=== PATIENT | male | born 1945 | race Caucasian/White ===

== ENCOUNTER → 2017-05-30 | Outpatient (REF) | payer MEDICARE ==
[~2017-05-30] MED LIST: /AUGM875TA; /TAMS4CA; AMLO10TA PO; ASPI81TA24 PO; ASPI81TA83 OR; ATOR1TAB21 PO; CHLO25TA PO; DICLOFENAC PO; ENAL20TA PO; FLAG500T; GEMFPOW3 PO; HYDR25TA6 PO; LISI10TA4 OR; LISI10TA4 PO; LISI40TAB PO; METF500T13 PO; PERC5TAB8
[2017-05-30 19:11] LABS: ANION GAP 9 MEQ/L (8-16); BLOOD UREA NITROGEN 26 MG/DL (7-18); CALCIUM LEVEL 9.4 MG/DL (8.8-10.2); CARBON DIOXIDE LEVEL 28 MEQ/L (21-32); CHLORIDE LEVEL 104 MEQ/L (98-107); CREATININE FOR GFR 1.18 MG/DL (0.70-1.30); GLOMERULAR FILTRATION RATE > 60.0 (>42); GLUCOSE, FASTING 91 MG/DL (83-110); SODIUM LEVEL 141 MEQ/L (136-145)
== END ==
LOC: M SFHCPLAZ 16:13
DX: R73.09 Other abnormal glucose (principal); I10 Essential (primary) hypertension
CPT/HCPCS: 80048; 83036; G0463

== ENCOUNTER → 2017-09-18 | Outpatient (REF) | payer MEDICARE | LOC: M LAB REF 13:08 | PROVIDERS: ATTEND Neurological Surgery | DX: Z01.818 Encounter for other preprocedural examination (principal) ==

== ENCOUNTER → 2017-09-18 | Outpatient (REF) | payer MEDICARE ==
[~2017-09-18] MED LIST changes: +AZIT-12 PO; +HYDR25TAB PO; +TYLE325T5 PO
[2017-09-18 12:12] LABS: ANION GAP 7 MEQ/L (8-16); BLOOD UREA NITROGEN 24 MG/DL (7-18); CALCIUM LEVEL 8.7 MG/DL (8.8-10.2); CARBON DIOXIDE LEVEL 29 MEQ/L (21-32); CHLORIDE LEVEL 106 MEQ/L (98-107); CREATININE FOR GFR 1.04 MG/DL (0.70-1.30); GLOMERULAR FILTRATION RATE > 60.0 (>42); GLUCOSE, FASTING 83 MG/DL (83-110); POTASSIUM SERUM 3.9 MEQ/L (3.5-5.1); SODIUM LEVEL 142 MEQ/L (136-145)
== END ==
LOC: M LABDRAW1 09:18 → M SFHCPLAZ 09:18
DX: R73.09 Other abnormal glucose (principal); I10 Essential (primary) hypertension
CPT/HCPCS: 80048; 83036; 87081; 93005; G0463

== ENCOUNTER → 2017-09-24 | Outpatient (REF) | payer MEDICARE ==
[2017-09-24 12:16] LABS: BASO % 0.7 % (0.0-1.0); EOS # 0.3 10^3/uL (0.0-0.50); EOS % 5.8 % (0.0-3.0); IMMATURE GRANULOCYTE % 0.2 % (0-0); LYMPH # 1.9 10^3/uL (1.5-4.5); LYMPH % 33.3 % (24.0-44.0); MEAN CORPUSCULAR HGB CONC 33.4 g/dl (32.0-36.5); MEAN CORPUSCULAR VOLUME 89.8 fl (80.0-96.0); MONO # 0.5 10^3/uL (0.0-0.8); MONO % 8.3 % (0.0-5.0); NEUTROPHILS # 2.9 10^3/uL (1.8-7.7); NEUTROPHILS % 51.7 % (36.0-66.0); PLATELET COUNT, AUTOMATED 164 10^3/uL (150-450); RED CELL DISTRIBUTION WIDTH 13.2 % (11.5-14.5); WHITE BLOOD COUNT 5.7 10^3/uL (4.0-10.0)
[2017-09-24 12:27] LABS: INR 0.96
[2017-09-24 12:34] LABS: ALBUMIN 4.1 GM/DL (3.2-5.2); ALBUMIN/GLOBULIN RATIO 1.14 (1.00-1.93); ALKALINE PHOSPHATASE 69 U/L (45-117); ALT/SGPT 33 U/L (12-78); ANION GAP 6 MEQ/L (8-16); AST/SGOT 21 U/L (7-37); BILIRUBIN,TOTAL 0.5 MG/DL (0.2-1.0); BLOOD UREA NITROGEN 16 MG/DL (7-18); CALCIUM LEVEL 9.6 MG/DL (8.8-10.2); CARBON DIOXIDE LEVEL 33 MEQ/L (21-32); CHLORIDE LEVEL 102 MEQ/L (98-107); GLOMERULAR FILTRATION RATE > 60.0 (>42); GLUCOSE, FASTING 89 MG/DL (83-110); POTASSIUM SERUM 4.4 MEQ/L (3.5-5.1); SODIUM LEVEL 141 MEQ/L (136-145); TOTAL PROTEIN 7.7 GM/DL (6.4-8.2)
[2017-09-24 13:13] LABS: COLLAGEN ADP 153 SECONDS (56-103)
== END ==
LOC: M LABDRWAD 12:02
PROVIDERS: ATTEND Neurological Surgery
DX: Z01.812 Encounter for preprocedural laboratory examination (principal); Z79.899 Other long term (current) drug therapy

== ENCOUNTER 2017-09-29 08:05 | Emergency (ER) | payer MEDICARE, MEDICAID ==
[~2017-09-29] VITALS: Ht 167.6 cm; Wt 88.2 kg
[~2017-09-29 08:05] MED LIST changes: -AZIT-12 PO; -HYDR25TAB PO; -TYLE325T5 PO
[2017-09-29] MEDS ORDERED: HYDR25TAB PO (08:37)
[2017-09-29 09:54] LABS: BASO % 0.3 % (0.0-1.0); EOS % 0.4 % (0.0-3.0); IMMATURE GRANULOCYTE % 0.4 % (0-0); LYMPH # 0.9 10^3/uL (1.5-4.5); MEAN CORPUSCULAR HGB CONC 33.7 g/dl (32.0-36.5); MEAN CORPUSCULAR VOLUME 88.9 fl (80.0-96.0); MONO # 0.7 10^3/uL (0.0-0.8); MONO % 6.7 % (0.0-5.0); NEUTROPHILS # 8.7 10^3/uL (1.8-7.7); NEUTROPHILS % 83.2 % (36.0-66.0); PLATELET COUNT, AUTOMATED 145 10^3/uL (150-450); RED CELL DISTRIBUTION WIDTH 13.5 % (11.5-14.5); WHITE BLOOD COUNT 10.4 10^3/uL (4.0-10.0)
--- NOTE | 2017-09-29 09:58 | REP ---
Chest two views HISTORY: Fever Comparison: 12/25/2015 A calcified granuloma is present in the right lower lobe. The left lung is clear. The heart is normal in size. The pulmonary vasculature is normal in appearance. Degenerative change is present in the thoracic spine. IMPRESSION: No acute disease. Signed by Jeb Toussaint MD 09/29/2017 09:51 A
[2017-09-29 10:14] LABS: CALCIUM LEVEL 9.4 MG/DL (8.8-10.2); CREATININE FOR GFR 1.55 MG/DL (0.70-1.30); POTASSIUM SERUM 3.4 MEQ/L (3.5-5.1)
[2017-09-29] MEDS ORDERED: POTASSIUM CHLORIDE 10 MEQ SR TABLET PO ONE (10:30)
[2017-09-29] MEDS ORDERED: AZITHROMYCIN 250 MG TAB PO ONE (11:45)
[2017-09-29] MEDS ORDERED: AZIT-12 PO (11:46)
[2017-09-29] MEDS ORDERED: TYLE325T5 PO (11:56)
[2017-09-29 12:00] VITALS: BP 101/64
== END 2017-09-29 12:07 | disposition home or self-care (01) ==
LOC: M ED 08:05
DX: J18.9 Pneumonia, unspecified organism (principal); Z87.891 Personal history of nicotine dependence; I10 Essential (primary) hypertension; E78.00 Pure hypercholesterolemia, unspecified; E11.9 Type 2 diabetes mellitus without complications; M54.9 Dorsalgia, unspecified; Z79.82 Long term (current) use of aspirin; Z79.899 Other long term (current) drug therapy; Z79.84 Long term (current) use of oral hypoglycemic drugs; Z88.8 Allergy status to other drugs, medicaments and biological substances

== ENCOUNTER → 2017-11-20 | Outpatient (REF) | payer MEDICARE, MEDICAID | LOC: M LABNEURO 13:30 | DX: Z01.818 Encounter for other preprocedural examination (principal) | CPT/HCPCS: 87081 ==

== ENCOUNTER → 2017-11-21 | Outpatient (CLI) | payer MEDICARE, MEDICAID ==
[2017-11-21 13:55] LABS: BASO % 0.6 % (0.0-1.0); EOS # 0.4 10^3/uL (0.0-0.50); EOS % 5.9 % (0.0-3.0); HEMATOCRIT 45.7 % (42.0-52.0); HEMOGLOBIN 15.6 g/dl (14.0-18.0); IMMATURE GRANULOCYTE % 0.3 % (0-0); LYMPH # 2.2 10^3/uL (1.5-4.5); LYMPH % 31.1 % (24.0-44.0); MEAN CORPUSCULAR HEMOGLOBIN 29.9 pg (27.0-33.0); MEAN CORPUSCULAR HGB CONC 34.1 g/dl (32.0-36.5); MEAN CORPUSCULAR VOLUME 87.7 fl (80.0-96.0); MONO # 0.4 10^3/uL (0.0-0.8); MONO % 5.9 % (0.0-5.0); NEUTROPHILS # 3.9 10^3/uL (1.8-7.7); NEUTROPHILS % 56.2 % (36.0-66.0); PLATELET COUNT, AUTOMATED 152 10^3/uL (150-450); RED BLOOD COUNT 5.21 10^6/uL (4.30-6.10); RED CELL DISTRIBUTION WIDTH 13.9 % (11.5-14.5)
[2017-11-21 14:05] LABS: INR 0.98; PROTHROMBIN TIME 13.1 SECONDS (12.4-14.5)
[2017-11-21 14:06] LABS: PARTIAL THROMBOPLASTIN TIME 33.7 SECONDS (26.8-37.9)
[2017-11-21 14:49] LABS: ALBUMIN/GLOBULIN RATIO 1.18 (1.00-1.93); ALKALINE PHOSPHATASE 73 U/L (45-117); ALT/SGPT 36 U/L (12-78); ANION GAP 5 MEQ/L (8-16); AST/SGOT 25 U/L (7-37); BILIRUBIN,TOTAL 0.5 MG/DL (0.2-1.0); BLOOD UREA NITROGEN 20 MG/DL (7-18); CALCIUM LEVEL 9.2 MG/DL (8.8-10.2); CARBON DIOXIDE LEVEL 33 MEQ/L (21-32); CHLORIDE LEVEL 101 MEQ/L (98-107); CREATININE FOR GFR 1.06 MG/DL (0.70-1.30); GLOMERULAR FILTRATION RATE > 60.0 (>42); GLUCOSE, FASTING 96 MG/DL (70-100); SODIUM LEVEL 139 MEQ/L (136-145); TOTAL PROTEIN 7.4 GM/DL (6.4-8.2)
[2017-11-21 15:14] LABS: COLLAGEN ADP 69 SECONDS (56-103); COLLAGEN EPINEPHRINE > 300 SECONDS (74-162)
== END ==
LOC: M LAB 13:03
DX: Z01.818 Encounter for other preprocedural examination (principal); R00.1 Bradycardia, unspecified; M25.78 Osteophyte, vertebrae; M43.16 Spondylolisthesis, lumbar region; M51.36 Other intervertebral disc degeneration, lumbar region; M50.31 Other cervical disc degeneration, high cervical region; M50.321 Other cervical disc degeneration at C4-C5 level; M50.322 Other cervical disc degeneration at C5-C6 level; M50.323 Other cervical disc degeneration at C6-C7 level; M51.34 Other intervertebral disc degeneration, thoracic region; M47.892 Other spondylosis, cervical region; M47.896 Other spondylosis, lumbar region
CPT/HCPCS: 71046

== ENCOUNTER 2017-12-11 05:31 | Inpatient (IN) | payer MEDICARE, MEDICAID ==
[2017-12-11] MEDS ORDERED: LIDOCAINE 1% MDV 20ML VIAL SQ (05:45)
[2017-12-11] MEDS: LR 1,000 ML IV ×2 (06:32→14:30)
[2017-12-11 06:53] LABS: BEDSIDE GLUCOSE 112 MG/DL (83-110)
[2017-12-11] MEDS ORDERED: fentaNYL 250 MCG/5 ML INJECTION (J3010) As Ordered (07:05)
[2017-12-11] MEDS ORDERED: MIDAZOLAM INJ 2 MG/2 ML VIAL (J2250) As Ordered (07:06)
[2017-12-11] MEDS ORDERED: LIDOCAINE 2% INJ 100 MG/5 ML SDV (FOR ANES.) As Ordered ×2 (07:07→08:56)
[2017-12-11] MEDS ORDERED: PROPOFOL 200 MG/20 ML VIAL As Ordered ×13 (07:07→12:33)
[2017-12-11] MEDS ORDERED: ROCURONIUM BROMIDE 50 MG/5 ML VIAL As Ordered (07:07)
[2017-12-11] MEDS ORDERED: REMIFENTANIL 1MG 3ML VIAL As Ordered ×3 (07:13→11:52)
[2017-12-11] MEDS ORDERED: ePHEDrine INJ 50 MG/ML VIAL As Ordered (07:49)
[2017-12-11] MEDS ORDERED: dexameTHASONE 4 MG/ML 1ML VIAL (J1100) As Ordered (08:51)
[2017-12-11] MEDS ORDERED: METOCLOPRAMIDE INJ 10MG/2ML VIAL (J2765) As Ordered (08:52)
[2017-12-11] MEDS: BACITRACIN PWD 50,000 UNITS VIAL As Ordered (11:39)
[2017-12-11] MEDS: THROMBIN SOLN 20,000 UNITS KIT As Ordered (11:39)
[2017-12-11] MEDS: methylPREDNISolone SUSP 40 MG/ML (DEPO-medrol) VIAL (J1030) As Ordered (11:39)
[2017-12-11] MEDS ORDERED: ONDANSETRON 4MG/2ML VIAL (J2405) As Ordered (12:40)
[2017-12-11] MEDS ORDERED: methylPREDNISolone SUSP 40 MG/ML (DEPO-medrol) VIAL (J1030) (13:00)
[2017-12-11] MEDS ORDERED: methylPREDNISolone SUSP 40 MG/ML (DEPO-medrol) VIAL (J1030) As Ordered (13:09)
[2017-12-11] MEDS ORDERED: fentaNYL 100 MCG/2 ML INJECTION (J3010) As Ordered (13:49)
[2017-12-11] MEDS: fentaNYL 100 MCG/2 ML INJECTION (J3010) IV ×4 (13:55→14:14)
[2017-12-11] MEDS ORDERED: METOCLOPRAMIDE INJ 10MG/2ML VIAL (J2765) IV (14:30)
[2017-12-11] MEDS ORDERED: PERCOCET 5MG/325MG TAB PO (14:30)
[2017-12-11] MEDS ORDERED: ONDANSETRON 4MG/2ML VIAL (J2405) IV ×2 (14:30→14:45)
[2017-12-11] MEDS ORDERED: MEPERIDINE INJ 25 MG/ML VIAL (J2175) IV (14:30)
[2017-12-11] MEDS ORDERED: MORPHINE 4 MG/ML 1ML VIAL (J2270) IV (14:45)
[2017-12-11] MEDS ORDERED: ACETAMINOPHEN TAB 650MG DOSE (2X325MG) PO (14:45)
[2017-12-11] MEDS: KCL 20MEQ IN D5/0.45NS 1000ML 1,000 ML IV (16:34)
[2017-12-11] MEDS: NORCO, ANEXSIA 5/325MG TABLET (HYDROcodone/ACETAMINOPHEN) PO (18:20)
[2017-12-11] MEDS: CEFAZOLIN SOD 1 GM in APPROPRIATE DILUENT 1 EA IV ×2 (18:20→22:03)
[2017-12-12] MEDS: KCL 20MEQ IN D5/0.45NS 1000ML 1,000 ML IV (01:39)
[2017-12-12] MEDS: CEFAZOLIN SOD 1 GM in APPROPRIATE DILUENT 1 EA IV (04:09)
[2017-12-12] MEDS: metFORMIN (GLUCOPHAGE) 500 MG TAB PO (08:26)
[2017-12-12] MEDS: LISINOPRIL 10 MG TAB PO (08:26)
[2017-12-12] MEDS: hydroCHLOROthiazide 25 MG TAB PO (08:26)
[2017-12-12] MEDS: ATORVASTATIN 20 MG TAB PO (08:26)
[2017-12-12] MEDS: NORCO, ANEXSIA 5/325MG TABLET (HYDROcodone/ACETAMINOPHEN) PO (08:27)
[2017-12-12] MEDS ORDERED: GLUCOSE 4 GM CHEW TABLET PO (16:45)
[2017-12-12] MEDS ORDERED: DEXTROSE 50% 50 ML SYRINGE IV (16:45)
[2017-12-12] MEDS ORDERED: GLUCAGON FOR INJ 1 MG VIAL (J1610) SC (16:45)
[2017-12-12 17:20] LABS: BEDSIDE GLUCOSE 158 MG/DL (83-110)
[2017-12-12] MEDS: HumaLOG INSULIN (NovoLOG) PER UNIT SC ×2 (17:24→20:36)
[2017-12-12 21:14] LABS: BEDSIDE GLUCOSE 161 MG/DL (83-110)
[2017-12-13] MEDS: HumaLOG INSULIN (NovoLOG) PER UNIT SC ×2 (07:30→11:33)
[2017-12-13 07:32] LABS: BEDSIDE GLUCOSE 101 MG/DL (83-110)
[2017-12-13] MEDS: ATORVASTATIN 20 MG TAB PO (08:31)
[2017-12-13] MEDS: hydroCHLOROthiazide 25 MG TAB PO (08:31)
[2017-12-13] MEDS: metFORMIN (GLUCOPHAGE) 500 MG TAB PO (08:32)
[2017-12-13] MEDS: LISINOPRIL 10 MG TAB PO (08:32)
== END 2017-12-13 16:15 | disposition home or self-care (01) | DRG 472 ==
LOC: M OR 05:31 → M MS5PR 14:55
PROVIDERS: Neurological Surgery
PROC: 0RG20A0 Fusion of 2 or more Cervical Vertebral Joints with Interbody Fusion Device, Anterior Approach, Anterior Column, Open Approach (ICD-10-PCS; principal; 2017-12-11 07:30)
PROC: 00NW0ZZ Release Cervical Spinal Cord, Open Approach (ICD-10-PCS; 2017-12-11 07:30)
DX: M47.12 Other spondylosis with myelopathy, cervical region (principal); G95.89 Other specified diseases of spinal cord; G95.20 Unspecified cord compression; M62.81 Muscle weakness (generalized); E66.9 Obesity, unspecified; G62.9 Polyneuropathy, unspecified; E11.9 Type 2 diabetes mellitus without complications; Z79.84 Long term (current) use of oral hypoglycemic drugs; I10 Essential (primary) hypertension; E78.5 Hyperlipidemia, unspecified; Z79.899 Other long term (current) drug therapy

== ENCOUNTER → 2018-06-09 | Outpatient (CLI) | payer MEDICARE, MEDICAID ==
[2018-06-09 19:09] LABS: BASO % 0.5 % (0.0-1.0); EOS # 0.4 10^3/uL (0.0-0.50); EOS % 5.7 % (0.0-3.0); HEMATOCRIT 45.2 % (42.0-52.0); IMMATURE GRANULOCYTE % 0.3 % (0-3.0); LYMPH # 2.1 10^3/uL (1.5-4.5); LYMPH % 33.6 % (24.0-44.0); MEAN CORPUSCULAR HEMOGLOBIN 29.8 pg (27.0-33.0); MEAN CORPUSCULAR HGB CONC 33.2 g/dl (32.0-36.5); MEAN CORPUSCULAR VOLUME 89.7 fl (80.0-96.0); MONO # 0.5 10^3/uL (0.0-0.8); MONO % 7.7 % (0.0-5.0); NEUTROPHILS # 3.2 10^3/uL (1.8-7.7); NEUTROPHILS % 52.2 % (36.0-66.0); PLATELET COUNT, AUTOMATED 133 10^3/uL (150-450); RED BLOOD COUNT 5.04 10^6/uL (4.30-6.10); RED CELL DISTRIBUTION WIDTH 13.8 % (11.5-14.5); WHITE BLOOD COUNT 6.1 10^3/uL (4.0-10.0)
[2018-06-09 19:25] LABS: INR 0.91; PROTHROMBIN TIME 12.4 SECONDS (12.1-14.4)
[2018-06-09 19:26] LABS: PARTIAL THROMBOPLASTIN TIME 31.7 SECONDS (25.4-37.6)
[2018-06-09 19:34] LABS: ALBUMIN/GLOBULIN RATIO 1.14 (1.00-1.93); ALKALINE PHOSPHATASE 75 U/L (45-117); ALT/SGPT 33 U/L (12-78); ANION GAP 8 MEQ/L (8-16); AST/SGOT 26 U/L (7-37); BILIRUBIN,TOTAL 0.5 MG/DL (0.2-1.0); BLOOD UREA NITROGEN 19 MG/DL (7-18); CALCIUM LEVEL 9.2 MG/DL (8.8-10.2); CARBON DIOXIDE LEVEL 29 MEQ/L (21-32); CHLORIDE LEVEL 108 MEQ/L (98-107); GLOMERULAR FILTRATION RATE > 60.0 (>42); GLUCOSE, FASTING 89 MG/DL (70-100); POTASSIUM SERUM 4.1 MEQ/L (3.5-5.1); SODIUM LEVEL 145 MEQ/L (136-145); TOTAL PROTEIN 7.5 GM/DL (6.4-8.2)
[2018-06-09 20:01] LABS: COLLAGEN EPINEPHRINE 237 SECONDS (74-162)
[2018-06-09 20:04] LABS: COLLAGEN ADP 101 SECONDS (56-103)
== END ==
LOC: M LAB 17:54
DX: Z01.818 Encounter for other preprocedural examination (principal); S44.02XD Injury of ulnar nerve at upper arm level, left arm, subsequent encounter; I10 Essential (primary) hypertension; E78.2 Mixed hyperlipidemia; R73.01 Impaired fasting glucose; Z87.891 Personal history of nicotine dependence; R01.1 Cardiac murmur, unspecified
CPT/HCPCS: 71046

== ENCOUNTER → 2018-06-11 | Day surgery (SDC) | payer MEDICARE, MEDICAID ==
[~2018-06-11] MED LIST changes: -/AUGM875TA; -/TAMS4CA; -AMLO10TA PO; -ASPI81TA24 PO; -ASPI81TA83 OR; -ATOR1TAB21 PO; -CHLO25TA PO; -DICLOFENAC PO; -ENAL20TA PO; -FLAG500T; -GEMFPOW3 PO; -HYDR25TA6 PO; +KETOROLAC 60 MG/2 ML VIAL (J1885) As Ordered; +LIDOCAINE 1% SDV INJ 30 ML VIAL As Ordered; +LIDOCAINE 2% INJ 100 MG/5 ML SDV (FOR ANES.) As Ordered; -LISI10TA4 OR; -LISI10TA4 PO; -LISI40TAB PO; +LR 1,000 ML IV; -METF500T13 PO; +MIDAZOLAM INJ 2 MG/2 ML VIAL (J2250) As Ordered; +ONDANSETRON 4MG/2ML VIAL (J2405) As Ordered; -PERC5TAB8; +PROPOFOL 200 MG/20 ML VIAL As Ordered; +fentaNYL 100 MCG/2 ML INJECTION (J3010) As Ordered; +methylPREDNISolone SUSP 40 MG/ML (DEPO-medrol) VIAL (J1030) As Ordered
[2018-06-11 06:57] LABS: COLLAGEN ADP 108 SECONDS (56-103); COLLAGEN EPINEPHRINE > 300 SECONDS (74-162)
== END | disposition home or self-care (01) ==
LOC: M SDC 05:44
DX: G56.22 Lesion of ulnar nerve, left upper limb (principal); Z53.09 Procedure and treatment not carried out because of other contraindication; Z79.82 Long term (current) use of aspirin
CPT/HCPCS: 36415

== ENCOUNTER → 2018-09-08 | Outpatient (REF) | payer MEDICARE, MEDICAID | LOC: M SFHCPLAZ 17:19 | DX: R39.15 Urgency of urination (principal) | CPT/HCPCS: 87086 ==

== ENCOUNTER 2019-10-01 10:24 | Emergency (ER) | payer MEDICARE, MEDICAID ==
[~2019-10-01] VITALS: Ht 175.3 cm; Wt 81.8 kg
[~2019-10-01 10:24] MED LIST changes: +/AUGM875TA; +AMLO10TA PO; +ASPI81TA24 PO; +ASPI81TA83 OR; +ATOR1TAB21 PO; +AZIT-12 PO; +CHLO125TA PO; +CIPR-250 PO; +DICLOFENAC PO; +ENAL20TA PO; +FLAG500T; +FLOM0.4C39; +GEMFPOW3 PO; +HYDR25TA6 PO; +HYDR25TAB PO; -KETOROLAC 60 MG/2 ML VIAL (J1885) As Ordered; -LIDOCAINE 1% SDV INJ 30 ML VIAL As Ordered; -LIDOCAINE 2% INJ 100 MG/5 ML SDV (FOR ANES.) As Ordered; +LISI10TA4 OR; +LISI10TA4 PO; +LISI40TA52 PO; -LR 1,000 ML IV; +METF500T13 PO; -MIDAZOLAM INJ 2 MG/2 ML VIAL (J2250) As Ordered; +NORC1TAB7 PO; -ONDANSETRON 4MG/2ML VIAL (J2405) As Ordered; +PERC5TAB8; -PROPOFOL 200 MG/20 ML VIAL As Ordered; +TYLE325T5 PO; -fentaNYL 100 MCG/2 ML INJECTION (J3010) As Ordered; -methylPREDNISolone SUSP 40 MG/ML (DEPO-medrol) VIAL (J1030) As Ordered
[2019-10-01] MEDS ORDERED: NS 1,000 ML IV ONE (10:30)
[2019-10-01] MEDS ORDERED: DUTA1CAP PO (10:50)
[2019-10-01] MEDS ORDERED: FLOM0.4C39 PO (10:50)
[2019-10-01 11:00] LABS: BASO % 0.2 % (0.0-1.0); EOS # 0.1 10^3/uL (0.0-0.5); EOS % 0.8 % (0.0-3.0); HEMATOCRIT 41.6 % (42.0-52.0); HEMOGLOBIN 13.8 g/dl (13.5-17.5); LYMPH # 0.9 10^3/uL (1.5-5.0); LYMPH % 9.7 % (24.0-44.0); MEAN CORPUSCULAR HEMOGLOBIN 29.7 pg (27.0-33.0); MEAN CORPUSCULAR HGB CONC 33.2 g/dl (32.0-36.5); MEAN CORPUSCULAR VOLUME 89.5 fl (80.0-96.0); MONO # 0.3 10^3/uL (0.0-0.8); MONO % 3.3 % (0.0-5.0); NEUTROPHILS # 8.2 10^3/uL (1.5-8.5); NEUTROPHILS % 85.6 % (36.0-66.0); PLATELET COUNT, AUTOMATED 140 10^3/uL (150-450); RED BLOOD COUNT 4.65 10^6/uL (4.30-6.10); WHITE BLOOD COUNT 9.6 10^3/uL (4.0-10.0)
--- NOTE | 2019-10-01 11:02 | REP ---
Clinical: Lower chest and abdominal pain . Comparison: 06/09/2018 . Findings: The mediastinum and cardiac silhouette are stable and within normal limits for portable technique. The lung jaimes are clear without acute consolidation, effusion, or pneumothorax. Skeletal structures are intact. Impression: No acute cardiopulmonary process appreciated. Electronically Signed by Pastor Harper MD 10/01/2019 10:53 A
[2019-10-01 11:09] LABS: INR 1.12; PROTHROMBIN TIME 14.1 SECONDS (11.8-14.0)
[2019-10-01 11:10] LABS: PARTIAL THROMBOPLASTIN TIME 32.6 SECONDS (25.0-38.4)
[2019-10-01] MEDS ORDERED: ISOVUE-370 76% 100ML VIAL (Q9967) As Ordered ONE (11:11)
[2019-10-01 11:26] LABS: ALBUMIN 3.6 GM/DL (3.2-5.2); ALT/SGPT 31 U/L (12-78); AMYLASE 55 U/L (25-115); BILIRUBIN,DIRECT 0.1 MG/DL (0.0-0.2); BILIRUBIN,TOTAL 0.4 MG/DL (0.2-1.0); CK-MB VALUE MASS 2.5 NG/ML (<3.6); CPK CREATINE PHOSPHOKINASE 185 U/L (39-308); LIPASE 166 U/L (73-393); MB/CK RELATIVE INDEX 1.35 (< OR =4); TOTAL PROTEIN 6.6 GM/DL (6.4-8.2); TROPONIN I < 0.02 NG/ML (< 0.10)
[2019-10-01] MEDS ORDERED: MORPHINE 2 MG/ML 1ML VIAL (J2270) IV PRN (11:45)
--- NOTE | 2019-10-01 11:46 | REP ---
Clinical: Chest and abdominal pain. Technique: Axial contrast enhanced images from the thoracic inlet to the upper abdomen using 100 ml Isovue 370 intravenous contrast material with multiplanar re-formations. Findings: Satisfactory enhancement of the pulmonary vasculature is achieved and no filling defects are identified to suggest pulmonary embolus. Further evaluation of the mediastinum demonstrates atherosclerotic changes to the thoracic aorta and coronary arteries without aortic aneurysm or dissection and without cardiomegaly or pericardial effusion. The bilateral lung jaimes are well aerated and clear without consolidation pleural effusion or pneumothorax. Few calcified lymph nodes and granulomata consistent with prior granulomatous disease. Tracheobronchial tree is patent. No nodule or mass lesion is identified. No adenopathy noted. Surrounding musculoskeletal structures intact Impression: No evidence for pulmonary embolus. No evidence for thoracic aortic aneurysm or dissection. No acute mediastinal or pleuroparenchymal process. Electronically Signed by Pastor Harper MD 10/01/2019 11:37 A
--- NOTE | 2019-10-01 11:50 | REP ---
Clinical: Abdominal pain. Technique: Axial contrast enhanced images from the lung bases to the pubic symphysis using aortic angiographic technique with multiplanar re-formations. 100 ml Isovue 370 intravenous contrast material administered without complication. Findings: The abdominal aorta is without aneurysm or dissection. Atherosclerotic changes with intimal calcification and small amount of mural thrombus primarily involves the infrarenal abdominal aorta along with intimal calcifications involving the origins of the major branch vessels including celiac axis, superior mesenteric artery, bilateral renal arteries and iliac arteries with subsequent normal contrast enhancement and no evidence for associated occlusion. Liver, spleen, pancreas, bilateral adrenal glands and kidneys are relatively normal. The gallbladder is moderately distended but without evidence for acute pathology. Kidneys demonstrate symmetric age-related cortical thinning. The enteric system is without obstruction or acute inflammatory process. Scattered diverticula noted without acute diverticulitis. Pelvis demonstrates normal bladder along with mild prostatomegaly. No ascites. No free air. No adenopathy. The musculoskeletal structures demonstrate age-related changes. Impression: 1. Mild/early moderate atherosclerotic changes to the aorta and vasculature without evidence for aortic aneurysm or dissection and no evidence for occlusion or significant stenosis of the associated major branch vessels of the abdominal aorta. 2. Moderately distended gallbladder without associated pathologic findings. 3. No acute abdominopelvic pathology. 4. Chronic changes as described above. Electronically Signed by Pastor Harper MD 10/01/2019 11:42 A
[2019-10-01] MEDS ORDERED: GI COCKTAIL 50ML BTL(HYOSCYAMINE/MAALOX/LIDOCAINE VISCOUS)(1:3:1) PO ONE ×2 (12:00→16:00)
[2019-10-01 15:10] LABS: CK-MB VALUE MASS 2.1 NG/ML (<3.6); CPK CREATINE PHOSPHOKINASE 180 U/L (39-308); MB/CK RELATIVE INDEX 1.17 (< OR =4); TROPONIN I < 0.02 NG/ML (< 0.10)
[2019-10-01 15:30] VITALS: BP 116/73
[2019-10-01] MEDS ORDERED: SUCR1SS PO (15:50)
[2019-10-01] MEDS ORDERED: OMEP40CA97 PO (15:50)
--- NOTE | 2019-10-01 18:06 | ECGEPIP ---
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
--- NOTE | 2019-10-01 18:17 | ECGEPIP ---
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
== END 2019-10-01 16:20 | disposition home or self-care (01) ==
LOC: EDBD 10:24 → M ED 10:24
DX: R10.9 Unspecified abdominal pain (principal); K29.61 Other gastritis with bleeding; I44.0 Atrioventricular block, first degree; R00.1 Bradycardia, unspecified; I10 Essential (primary) hypertension; E78.5 Hyperlipidemia, unspecified; E11.9 Type 2 diabetes mellitus without complications; M54.9 Dorsalgia, unspecified; Z79.899 Other long term (current) drug therapy; Z88.8 Allergy status to other drugs, medicaments and biological substances
CPT/HCPCS: 71045; 71275; 74174; 80047; 80076; 81001; 82150; 82550; 82553; 83605; 83690; 84484; 85025; 85610; 85730; 86850; 86900; 86901; 93005; 93041; 96361; 96374; 99285; J2270; Q9967

== ENCOUNTER → 2019-11-05 | Outpatient (REF) | payer MEDICARE, MEDICAID ==
[~2019-11-05] MED LIST changes: +DUTA1CAP PO; +FLOM0.4C39 PO; +OMEP40CA97 PO; +SUCR1SS PO
== END ==
LOC: M SFHCPLAZ 14:52
DX: R73.09 Other abnormal glucose (principal); E78.2 Mixed hyperlipidemia; Z53.8 Procedure and treatment not carried out for other reasons

== ENCOUNTER → 2019-11-16 | Outpatient (CLI) | payer MEDICARE, MEDICAID ==
[2019-11-16 18:12] LABS: CHOLESTEROL RISK RATIO 3.133 (<5)
[2019-11-16 18:54] LABS: HEMOGLOBIN A1c 6.3 %
== END ==
LOC: M PLALAB 13:30
PROVIDERS: ATTEND Hospitalist
DX: R73.09 Other abnormal glucose (principal); E78.2 Mixed hyperlipidemia

== ENCOUNTER 2020-04-11 12:13 | Emergency (ER) | payer MEDICARE, MEDICAID ==
[~2020-04-11] VITALS: Ht 172.7 cm; Wt 72.7 kg
[~2020-04-11 12:13] MED LIST changes: -DUTA1CAP PO; +DUTA1CAP2 PO
[2020-04-11] MEDS ORDERED: BOOSTRIX/ADACEL VACCINE (DIPHTH/PERTUSS/ACELL/TETANUS) 0.5ML SYR IM ONE (14:00)
[2020-04-11] MEDS ORDERED: DERMABOND TOPICAL SKIN ADHESIVE TOP ONE (14:00)
[2020-04-11 15:16] VITALS: BP 167/74
== END 2020-04-11 16:25 | disposition home or self-care (01) ==
LOC: M ED 12:13 → EDBD 12:13 → M ED 16:25
DX: S01.81XA Laceration without foreign body of other part of head, initial encounter (principal); W20.8XXA Other cause of strike by thrown, projected or falling object, initial encounter; Y92.099 Unspecified place in other non-institutional residence as the place of occurrence of the external cause; Y93.9 Activity, unspecified; Y99.9 Unspecified external cause status; E11.9 Type 2 diabetes mellitus without complications; I10 Essential (primary) hypertension; Z87.891 Personal history of nicotine dependence; Z79.84 Long term (current) use of oral hypoglycemic drugs; Z79.899 Other long term (current) drug therapy; Z88.8 Allergy status to other drugs, medicaments and biological substances

== ENCOUNTER → 2020-04-21 | Outpatient (REF) | payer MEDICARE, MEDICAID ==
[~2020-04-21] MED LIST changes: +ATOR40TA75 PO
[2020-04-21 17:59] LABS: HEMATOCRIT 44.3 % (42.0-52.0); HEMOGLOBIN 14.2 g/dl (13.5-17.5); MEAN CORPUSCULAR HEMOGLOBIN 28.9 pg (27.0-33.0); MEAN CORPUSCULAR HGB CONC 32.1 g/dl (32.0-36.5); MEAN CORPUSCULAR VOLUME 90.2 fl (80.0-96.0); PLATELET COUNT, AUTOMATED 150 10^3/uL (150-450); RED BLOOD COUNT 4.91 10^6/uL (4.30-6.10); WHITE BLOOD COUNT 5.9 10^3/uL (4.0-10.0)
[2020-04-21 18:04] LABS: ALBUMIN 3.8 GM/DL (3.2-5.2); ALT/SGPT 29 U/L (12-78); BILIRUBIN,TOTAL 0.5 MG/DL (0.2-1.0); BLOOD UREA NITROGEN 20 MG/DL (7-18); CALCIUM LEVEL 8.9 MG/DL (8.8-10.2); CARBON DIOXIDE LEVEL 29 MEQ/L (21-32); CHLORIDE LEVEL 106 MEQ/L (98-107); CREATININE FOR GFR 0.95 MG/DL (0.70-1.30); GLOMERULAR FILTRATION RATE > 60.0 (>42); GLUCOSE, FASTING 104 MG/DL (70-100); POTASSIUM SERUM 4.1 MEQ/L (3.5-5.1); SODIUM LEVEL 140 MEQ/L (136-145); TOTAL PROTEIN 7.1 GM/DL (6.4-8.2)
[2020-04-21 18:29] LABS: MALB URINE SIEMENS 5.6 MG/L; MAU/CREAT RATIO 4.5 MCG/MG (0.0-30.0)
[2020-04-21 18:48] LABS: HEMOGLOBIN A1c 6.6 %
== END ==
LOC: M SFHCPLAZ 14:09
DX: E11.9 Type 2 diabetes mellitus without complications (principal); K29.60 Other gastritis without bleeding
CPT/HCPCS: 36415; 80053; 82043; 83036; 85027; G0463

== ENCOUNTER 2020-07-04 13:47 | Inpatient (IN) | payer MEDICARE, MEDICAID ==
[~2020-07-04] VITALS: Ht 167.6 cm; Wt 90.4 kg
[~2020-07-04 13:47] MED LIST changes: -ATOR40TA75 PO
[2020-07-04 14:53] LABS: BASO % 0.3 % (0.0-1.0); EOS # 0.1 10^3/uL (0.0-0.5); EOS % 1.1 % (0.0-3.0); HEMATOCRIT 44.5 % (42.0-52.0); HEMOGLOBIN 14.6 g/dl (13.5-17.5); LYMPH # 1.2 10^3/uL (1.5-5.0); LYMPH % 12.6 % (24.0-44.0); MEAN CORPUSCULAR HEMOGLOBIN 29.9 pg (27.0-33.0); MEAN CORPUSCULAR HGB CONC 32.8 g/dl (32.0-36.5); MEAN CORPUSCULAR VOLUME 91.2 fl (80.0-96.0); MONO # 0.6 10^3/uL (0.0-0.8); MONO % 6.4 % (0.0-5.0); NEUTROPHILS # 7.7 10^3/uL (1.5-8.5); NEUTROPHILS % 79.2 % (36.0-66.0); PLATELET COUNT, AUTOMATED 131 10^3/uL (150-450); RED BLOOD COUNT 4.88 10^6/uL (4.30-6.10); WHITE BLOOD COUNT 9.8 10^3/uL (4.0-10.0)
[2020-07-04 15:03] LABS: INR 1.07; PARTIAL THROMBOPLASTIN TIME 24.4 SECONDS (25.0-38.4); PROTHROMBIN TIME 14.1 SECONDS (11.8-14.0)
[2020-07-04 16:15] LABS: ALBUMIN 3.8 GM/DL (3.2-5.2); ALT/SGPT 35 U/L (12-78); AMYLASE 43 U/L (25-115); BILIRUBIN,DIRECT 0.1 MG/DL (0.0-0.2); BILIRUBIN,TOTAL 0.5 MG/DL (0.2-1.0); BLOOD UREA NITROGEN 15 MG/DL (7-18); CARBON DIOXIDE LEVEL 29 MEQ/L (21-32); CHLORIDE LEVEL 107 MEQ/L (98-107); GLOMERULAR FILTRATION RATE > 60.0 (>42); GLUCOSE, FASTING 109 MG/DL (70-100); LIPASE 123 U/L (73-393); POTASSIUM SERUM 3.9 MEQ/L (3.5-5.1); SODIUM LEVEL 140 MEQ/L (136-145)
[2020-07-04] MEDS ORDERED: ISOVUE-370 76% 100ML VIAL As Ordered ONE (16:38)
--- NOTE | 2020-07-04 17:40 | REPVR ---
PROCEDURE INFORMATION: Exam: CT Angiography Chest With Contrast Exam date and time: 07/04/2020 5:21 PM Age: 75 years old Clinical indication: Other: Abdominal pain, epigastric pain TECHNIQUE: Imaging protocol: Computed tomographic angiography of the chest with intravenous contrast. 3D rendering (Not supervised by radiologist): MIP and/or 3D reconstructed images were created by the technologist. Radiation optimization: All CT scans at this facility use at least one of these dose optimization techniques: automated exposure control; mA and/or kV adjustment per patient size (includes targeted exams where dose is matched to clinical indication); or iterative reconstruction. Contrast material: ISOVUE 370; Contrast volume: 100 ml; Contrast route: INTRAVENOUS (IV); COMPARISON: CT ANGIO CHEST 10/01/2019 11:12 AM FINDINGS: Pulmonary arteries: There are no pulmonary emboli. Aorta: There is no aortic dissection or aneurysm. Great vessels off aortic arch: The aortoiliac vessels demonstrate mild atherosclerotic calcification. Lungs: Bibasilar atelectasis. Calcified granuloma right middle and lower lobes. Pleural space: Unremarkable. No pneumothorax. No pleural effusion. Heart: There is moderate atherosclerotic calcification of the coronary arteries. Lymph nodes: Calcified right mediastinal and bilateral hilar lymphadenopathy. Bones/joints: The spine demonstrates mild degenerative changes. Soft tissues: Unremarkable. IMPRESSION: 1. There is no aortic dissection or aneurysm. 2. There are no pulmonary emboli. 3. No acute pulmonary parenchymal abnormalities. 4. Findings consistent with remote intrathoracic granulomatous infection. Electronically signed by: Jose D Porter On 07/04/2020 17:40:27 PM
--- NOTE | 2020-07-04 17:48 | REPVR ---
PROCEDURE INFORMATION: Exam: CT Abdomen And Pelvis With Contrast Exam date and time: 07/04/2020 5:21 PM Age: 75 years old Clinical indication: Other: Abdominal pain, epigastric pain TECHNIQUE: Imaging protocol: Computed tomography of the abdomen and pelvis with intravenous contrast. Radiation optimization: All CT scans at this facility use at least one of these dose optimization techniques: automated exposure control; mA and/or kV adjustment per patient size (includes targeted exams where dose is matched to clinical indication); or iterative reconstruction. Contrast material: ISOVUE 370; Contrast volume: 100 ml; Contrast route: INTRAVENOUS (IV); COMPARISON: CT ANGIO ABD/PEL 10/01/2019 11:12 AM FINDINGS: Liver: There is a diffuse decrease in hepatic parenchymal density, consistent with steatosis. Hepatic sparing demonstrated in the left lobe of the liver. Gallbladder and bile ducts: Irregular thickening of the gallbladder wall with pericholecystic fluid. There are no radiopaque calculi demonstrated. Clinical correlation to exclude acute cholecystitis suggested. Pancreas: Normal. No ductal dilation. Spleen: Normal. No splenomegaly. Adrenals: Normal. No mass. Kidneys and ureters: Normal. No hydronephrosis. Stomach and bowel: Unremarkable. No obstruction. No mucosal thickening. Appendix: No evidence of appendicitis. Intraperitoneal space: Unremarkable. No free air. No significant fluid collection. Vasculature: The aortoiliac vessels demonstrate mild atherosclerotic calcification. Lymph nodes: Unremarkable. No enlarged lymph nodes. Bladder: Unremarkable as visualized. Reproductive: The prostate gland demonstrates mild hyperplasia. Right testis partially located in the lower right inguinal canal. Bones/joints: The spine demonstrates mild degenerative changes. Moderate central spinal stenosis L3-L4 and severe central spinal stenosis L4-L5.There is a bilateral L5 spondylolysis. Soft tissues: Left inguinal hernia. No incarceration. IMPRESSION: 1. Moderate central spinal stenosis L3-L4 and severe central spinal stenosis L4-L5.There is a bilateral L5 spondylolysis. 2. There is a diffuse decrease in hepatic parenchymal density, consistent with steatosis. Hepatic sparing demonstrated in the left lobe of the liver. 3. Irregular thickening of the gallbladder wall with pericholecystic fluid. There are no radiopaque calculi demonstrated. Clinical correlation to exclude acute cholecystitis suggested. Ultrasound correlation may be helpful. 4. Mild prostatic hyperplasia. Electronically signed by: Jose D Porter On 07/04/2020 17:48:02 PM
--- NOTE | 2020-07-04 18:45 | REPVR ---
PROCEDURE INFORMATION: Exam: US Abdomen, Limited; Right Upper Quadrant Exam date and time: 07/04/2020 6:35 PM Age: 75 years old Clinical indication: Abdominal pain; Epigastric TECHNIQUE: Imaging protocol: US abdomen. Real time ultrasound with image documentation. Limited exam focused on the right upper quadrant. COMPARISON: CT ABD/PEL W/IV CONTRAST ONLY 07/04/2020 5:07 PM FINDINGS: Liver: Normal. No masses. Gallbladder: Diffuse thickening of the gallbladder wall. Large nonmobile echogenic focus near the gallbladder neck consistent with a gallstone. Gallbladder wall thickening measures up to 8.3 mm. Positive sonographic Jenkins sign. Pericholecystic fluid demonstrated. Findings consistent with acute cholecystitis. Common bile duct: The common bile duct measures 8.3 mm. No mass or choledocholithiasis in the visualized common bile duct. Distal common bile duct not visualized. Pancreas: Obscured by overlying bowel gas. Right kidney: Normal. Measures 9.1 x 5 x 5.4 cm. No mass. No hydronephrosis. IMPRESSION: Findings compatible with acute cholecystitis. Electronically signed by: Jose D Porter On 07/04/2020 18:45:09 PM
[2020-07-04] MEDS: MORPHINE 2 MG/ML 1ML VIAL (J2270) IV PRN ×2 (18:51→19:43)
[2020-07-04] MEDS ORDERED: ONDANSETRON 4MG/2ML VIAL IV ONE (19:00)
[2020-07-04] MEDS ORDERED: PIPERACILLIN/TAZOBACTAM SOD 3.375 GM in D5W MINI-BAG PLUS 50 ML IV ONE (19:00)
[2020-07-04] MEDS ORDERED: PROMETHAZINE INJ 25 MG/ML VIAL (J2550) As Ordered ONE (19:11)
[2020-07-04] MEDS ORDERED: PROMETHAZINE INJ 25 MG/ML VIAL (J2550) IV ONE (19:15)
[2020-07-04] MEDS ORDERED: NS 1,000 ML IV ONE (19:15)
[2020-07-04] MEDS ORDERED: ONDANSETRON 4MG/2ML VIAL IV PRN (19:45)
[2020-07-04] MEDS ORDERED: DUTA1CAP2 PO (19:52)
[2020-07-04] MEDS ORDERED: LISI10TA4 PO (19:52)
[2020-07-04] MEDS ORDERED: METF500T13 PO (19:52)
[2020-07-04] MEDS ORDERED: FLOM0.4C39 PO (19:52)
[2020-07-04] MEDS ORDERED: ATOR40TA75 PO (19:52)
[2020-07-04 21:19] VITALS: BP 142/86
[2020-07-04] MEDS: LR 1,000 ML IV SCH (23:27)
[2020-07-04] MEDS: KETOROLAC 30 MG/ML 1ML VIAL IV PRN (23:27)
[2020-07-05] VITALS (10 sets, daily range): BP systolic 124–172; BP diastolic 74–90
[2020-07-05] MEDS: PIPERACILLIN/TAZOBACTAM SOD 3.375 GM in D5W MINI-BAG PLUS 50 ML IV SCH ×4 (01:43→20:19)
[2020-07-05] MEDS: MORPHINE 2 MG/ML 1ML VIAL (J2270) IV PRN ×2 (03:03→08:20)
[2020-07-05] MEDS: KETOROLAC 30 MG/ML 1ML VIAL IV PRN (05:38)
[2020-07-05 06:13] LABS: BASO % 0.1 % (0.0-1.0); HEMATOCRIT 42.5 % (42.0-52.0); HEMOGLOBIN 13.9 g/dl (13.5-17.5); LYMPH % 6.6 % (24.0-44.0); MEAN CORPUSCULAR HEMOGLOBIN 29.8 pg (27.0-33.0); MEAN CORPUSCULAR HGB CONC 32.7 g/dl (32.0-36.5); MONO # 0.8 10^3/uL (0.0-0.8); MONO % 5.2 % (0.0-5.0); NEUTROPHILS # 12.6 10^3/uL (1.5-8.5); NEUTROPHILS % 87.5 % (36.0-66.0); PLATELET COUNT, AUTOMATED 126 10^3/uL (150-450); RED BLOOD COUNT 4.67 10^6/uL (4.30-6.10); WHITE BLOOD COUNT 14.4 10^3/uL (4.0-10.0)
[2020-07-05 06:45] LABS: ALBUMIN 3.4 GM/DL (3.2-5.2); BILIRUBIN,TOTAL 1.5 MG/DL (0.2-1.0); CALCIUM LEVEL 8.4 MG/DL (8.8-10.2); CREATININE FOR GFR 1.25 MG/DL (0.70-1.30); GLOMERULAR FILTRATION RATE 59.8 (>42); POTASSIUM SERUM 3.8 MEQ/L (3.5-5.1); TOTAL PROTEIN 6.4 GM/DL (6.4-8.2)
[2020-07-05] MEDS: LR 1,000 ML IV SCH ×3 (08:21→20:20)
--- NOTE | 2020-07-05 11:28 | HPE ---
DATE OF ADMISSION: 07/04/2020 ADMITTING DIAGNOSIS: Cholelithiasis with acute cholecystitis. HISTORY OF PRESENT ILLNESS: The patient is a 75-year-old man who presented to the emergency department at approximately 1:45 in the afternoon of 07/04/2020 complaining of severe abdominal pain. Patient had reported some lower abdominal discomfort starting yesterday but today the pain became much more severe. This started early in the morning and has continued during the morning into the afternoon and evening. The pain has become very severe. He denies any nausea or vomiting. He feels quite bloated and full with marked tenderness in the upper abdomen. In the emergency department, he was evaluated with laboratory studies and then had a CT scan of the abdomen and pelvis which showed thickening of the gallbladder wall with some pericholecystic fluid. There were no radiopaque calculi demonstrated. A gallbladder ultrasound was then obtained and this confirmed marked gallbladder wall thickening with findings of a large non- mobile echogenic focus near the gallbladder neck consistent with a large gallstone. The patient has continued to have significant discomfort. He received a dose of antibiotics in the emergency department and I was consulted. He is now admitted for management of his acute cholecystitis. ALLERGIES: Patient's record indicates an allergy to SILVER SULFADIAZINE. CURRENT MEDICATIONS: Include: - dutasteride 0.5 mg by mouth daily - atorvastatin 40 mg by mouth daily - lisinopril 10 mg by mouth daily - metformin 500 mg by mouth daily - tamsulosin 0.4 mg by mouth daily MEDICAL HISTORY: Significant for a history of hypertension. He has hyperlipidemia. He has impaired fasting glucose. He has benign prostatic hyperplasia. He has a history of bilateral carpal tunnel syndrome and low back pain as well as some left knee pain. His ambulation has been somewhat unstable recently. SURGICAL HISTORY: Significant for a tonsillectomy in the distant past and he has had a ruptured appendix in 2008. Cervical disc operation with fusion in November of 2017. FAMILY HISTORY: The patients father is from cirrhosis associated with alcohol abuse. His mother is from cancer. SOCIAL HISTORY: Patient is a former smoker and reports he quit greater than 10 years ago. He reports occasional beer intake. REVIEW OF SYSTEMS: Shows no history of chest pain or palpitations. He denies shortness of breath, cough, wheezing, or sputum production. He has no history of dysuria currently and no history of kidney stones. There is no history of rectal bleeding, hematochezia, diarrhea, constipation, jaundice, hepatitis, or pancreatitis. He reports never having been told of gallstones in the past. There is no history of seizure or stroke. The ambulance report interestingly reports that he was somewhat vague and even mildly disoriented as to time at the time of transport and apparently his told them that he is a little confused at times. PHYSICAL EXAMINATION: Reveals an older gentleman lying propped up slightly on the hospital stretcher in the emergency department. He is alert and responsive. He does appear to be in significant discomfort currently. His most recent vital signs show a temperature of 98.4, pulse of 86, respirations of 18, and a pulse oximetry of 100. His most recent blood pressure was 154/87. Sclerae are anicteric. Mucous membranes are moist. The neck is supple. He does have a small neck scar consistent with his prior neck surgery. Heart exam shows a regular rate and rhythm. The lungs are clear to auscultation bilaterally though the breath sounds are slightly distant. The abdomen seems somewhat protuberant. The abdomen shows no hernia. Palpation reveals moderate to marked tenderness in the right upper quadrant in the right subcostal area in particular. There is some lesser tenderness across the entire upper and mid abdomen. He does have some bowel sounds present. The extremities are without peripheral edema. He has palpable and radial pedal pulses. LABORATORY STUDIES: In the emergency department show a white count of 10, hemoglobin 15, hematocrit 44, and a platelet count of 131,000. Differential count showed 79% neutrophils, 13% lymphocytes, and 6% monocytes. PT, PTT, and INR are normal. Chemistry profile shows normal electrolytes with a BUN of 15, creatinine 0.9, and a glucose of 109. His lactic acid is only 1.5. Liver function tests are entirely normal. Amylase and lipase are normal. His COVID testing is negative. IMAGING: In the emergency department included: A CT angiogram of the chest which was interpreted by radiology as showing no evidence of pulmonary embolus and no intrathoracic aortic problem. There were no acute pulmonary findings. He had a CT scan of the abdomen and pelvis which was interpreted as showing some moderate central spinal stenosis at the L3-4 level and severe spinal stenosis at L4-L5 with bilateral L5 spondylolysis. There was some decrease in the hepatic density suggesting steatosis. There was irregular thickening of the gallbladder wall with some pericholecystic fluid and some mild prostatic hyperplasia. The gallbladder ultrasound showed findings compatible with acute cholecystitis with a gallstone in the gallbladder neck region and thickening of the gallbladder up to 8.3 mm. IMPRESSION: 1. Cholelithiasis with acute cholecystitis with quite severe pain. 2. Hypertension. 3. Hyperlipidemia. 4. Impaired fasting glucose. 5. Carpal tunnel syndrome. 6. Back pain. PLAN: The patient was counseled that he requires admission to the hospital in anticipation of a cholecystectomy. He was advised that given the large obstructing stone with marked inflammation that the best approach is removal of the gallbladder. He has been started on Zosyn in the emergency department and I will continue this. I will continue him on some maintenance IV fluid and keep him nothing by mouth. He will be provided with some Toradol or morphine as needed for pain at this point. If the operating room (OR) schedule will allow, as I think it will, I will add him on to the OR schedule for tomorrow. If it looks like there would be a delay, then it may be better to proceed this evening. The patient had a brief period to ask questions and advised me that I should plan on going ahead. We will therefore plan on proceeding with his surgery tomorrow, hopefully in the late morning. SHAWNEE
[2020-07-05] MEDS ORDERED: MIDAZOLAM INJ 2MG/2ML VIAL (J2250 PER 1MG) As Ordered ONE (13:10)
[2020-07-05] MEDS ORDERED: ROCURONIUM BROMIDE 50 MG/5 ML VIAL As Ordered ONE ×2 (13:11→17:13)
[2020-07-05] MEDS ORDERED: ePHEDrine SULFATE 25 MG/5 ML(5MG/ML) SYRINGE As Ordered ONE (13:11)
[2020-07-05] MEDS ORDERED: fentaNYL 250 MCG/5 ML INJECTION (J3010) As Ordered ONE (13:11)
[2020-07-05] MEDS ORDERED: propofoL 200 MG/20 ML VIAL As Ordered ONE (13:11)
[2020-07-05] MEDS ORDERED: ONDANSETRON 4MG/2ML VIAL As Ordered ONE ×2 (13:11→18:16)
[2020-07-05] MEDS ORDERED: dexameTHASONE 4 MG/ML 1ML VIAL (J1100 PER 1MG) As Ordered ONE (13:11)
[2020-07-05] MEDS ORDERED: LIDOCAINE 2% 100MG/5ML SDV (FOR ANES.) As Ordered ONE (13:11)
[2020-07-05] MEDS ORDERED: SUGAMMADEX SODIUM 500 MG/5 ML VIAL (BRIDION) As Ordered ONE (13:11)
[2020-07-05] MEDS ORDERED: PHENYLephrine HCL 500 MCG/5 ML (100MCG/ML) SYRINGE (J2370) As Ordered ONE (13:11)
[2020-07-05] MEDS ORDERED: BUPIVACAINE HCL 0.25% 30ML VIAL As Ordered ONE (15:31)
[2020-07-05] MEDS ORDERED: ZOSYN 3.375GM VIAL (J2543) As Ordered ONE (16:03)
[2020-07-05] MEDS ORDERED: ACETAMINOPHEN 1000MG 100ML IV BTL (OFIRMEV) (J0131 PER 10MG) As Ordered ONE (16:28)
[2020-07-05] MEDS ORDERED: NORCO, ANEXSIA 5/325MG TABLET (HYDROcodone/ACETAMINOPHEN) PO PRN (18:45)
[2020-07-05] MEDS ORDERED: ACETAMINOPHEN TAB 650MG DOSE (2X325MG) PO PRN (18:45)
[2020-07-06] VITALS (7 sets, daily range): BP systolic 129–174; BP diastolic 81–94
[2020-07-06] MEDS: PIPERACILLIN/TAZOBACTAM SOD 3.375 GM in D5W MINI-BAG PLUS 50 ML IV SCH ×4 (02:50→20:52)
[2020-07-06] MEDS: LR 1,000 ML IV SCH ×2 (06:19→18:33)
[2020-07-06 06:26] LABS: BASO % 0.1 % (0.0-1.0); HEMATOCRIT 40.5 % (42.0-52.0); LYMPH # 0.9 10^3/uL (1.5-5.0); LYMPH % 7.2 % (24.0-44.0); MEAN CORPUSCULAR HEMOGLOBIN 29.7 pg (27.0-33.0); MEAN CORPUSCULAR HGB CONC 32.1 g/dl (32.0-36.5); MEAN CORPUSCULAR VOLUME 92.7 fl (80.0-96.0); MONO # 0.6 10^3/uL (0.0-0.8); MONO % 4.8 % (0.0-5.0); NEUTROPHILS % 86.9 % (36.0-66.0); PLATELET COUNT, AUTOMATED 123 10^3/uL (150-450); RED BLOOD COUNT 4.37 10^6/uL (4.30-6.10); WHITE BLOOD COUNT 12.6 10^3/uL (4.0-10.0)
[2020-07-06 06:50] LABS: ALBUMIN 2.8 GM/DL (3.2-5.2); ALT/SGPT 37 U/L (12-78); BILIRUBIN,TOTAL 1.2 MG/DL (0.2-1.0); BLOOD UREA NITROGEN 18 MG/DL (7-18); CALCIUM LEVEL 8.3 MG/DL (8.8-10.2); CARBON DIOXIDE LEVEL 30 MEQ/L (21-32); CHLORIDE LEVEL 107 MEQ/L (98-107); CREATININE FOR GFR 1.15 MG/DL (0.70-1.30); GLOMERULAR FILTRATION RATE > 60.0 (>42); GLUCOSE, FASTING 141 MG/DL (70-100); POTASSIUM SERUM 3.9 MEQ/L (3.5-5.1); SODIUM LEVEL 141 MEQ/L (136-145); TOTAL PROTEIN 5.6 GM/DL (6.4-8.2)
[2020-07-06] MEDS: TAMSULOSIN 0.4 MG CAP PO SCH (08:38)
[2020-07-06] MEDS: DUTASTERIDE 0.5 MG CAP (AVODART) PO SCH (08:38)
[2020-07-06] MEDS: lisinopriL 10 MG TAB PO SCH (08:41)
[2020-07-06] MEDS ORDERED: IBUPROFEN 400 MG TAB PO PRN (14:00)
[2020-07-06] MEDS: ENOXAPARIN 40MG/0.4ML SYRINGE (J1650 PER 10MG) SC SCH (14:26)
[2020-07-07] MEDS: PIPERACILLIN/TAZOBACTAM SOD 3.375 GM in D5W MINI-BAG PLUS 50 ML IV SCH ×4 (01:23→19:40)
[2020-07-07 06:00] VITALS: BP 154/88
[2020-07-07 06:04] LABS: BASO % 0.2 % (0.0-1.0); EOS # 0.1 10^3/uL (0.0-0.5); EOS % 1.5 % (0.0-3.0); HEMATOCRIT 36.9 % (42.0-52.0); LYMPH # 1.5 10^3/uL (1.5-5.0); LYMPH % 18.7 % (24.0-44.0); MEAN CORPUSCULAR HEMOGLOBIN 30.2 pg (27.0-33.0); MEAN CORPUSCULAR HGB CONC 32.5 g/dl (32.0-36.5); MEAN CORPUSCULAR VOLUME 92.7 fl (80.0-96.0); MONO # 0.4 10^3/uL (0.0-0.8); MONO % 5.4 % (0.0-5.0); NEUTROPHILS # 6.1 10^3/uL (1.5-8.5); NEUTROPHILS % 73.7 % (36.0-66.0); PLATELET COUNT, AUTOMATED 117 10^3/uL (150-450); RED BLOOD COUNT 3.98 10^6/uL (4.30-6.10); WHITE BLOOD COUNT 8.2 10^3/uL (4.0-10.0)
[2020-07-07 06:29] LABS: ALBUMIN 2.4 GM/DL (3.2-5.2); ALT/SGPT 32 U/L (12-78); BLOOD UREA NITROGEN 17 MG/DL (7-18); CALCIUM LEVEL 8.2 MG/DL (8.8-10.2); CARBON DIOXIDE LEVEL 29 MEQ/L (21-32); CHLORIDE LEVEL 109 MEQ/L (98-107); CREATININE FOR GFR 1.03 MG/DL (0.70-1.30); GLOMERULAR FILTRATION RATE > 60.0 (>42); GLUCOSE, FASTING 92 MG/DL (70-100); POTASSIUM SERUM 3.5 MEQ/L (3.5-5.1); SODIUM LEVEL 142 MEQ/L (136-145); TOTAL PROTEIN 5.2 GM/DL (6.4-8.2)
[2020-07-07] MEDS: TAMSULOSIN 0.4 MG CAP PO SCH (08:49)
[2020-07-07] MEDS: DUTASTERIDE 0.5 MG CAP (AVODART) PO SCH (08:49)
[2020-07-07] MEDS: ENOXAPARIN 40MG/0.4ML SYRINGE (J1650 PER 10MG) SC SCH (08:49)
[2020-07-07] MEDS: lisinopriL 10 MG TAB PO SCH (08:55)
[2020-07-07] MEDS: LR 1,000 ML IV SCH (08:56)
[2020-07-07 10:00] VITALS: BP 170/70
[2020-07-07 14:00] VITALS: BP 138/84
[2020-07-07 18:00] VITALS: BP 133/84
[2020-07-07 22:00] VITALS: BP 159/90
[2020-07-08] MEDS ORDERED: HALOPERIDOL 5MG/ML VIAL (J1630 PER 1) IV PRN (01:15)
[2020-07-08] MEDS ORDERED: HALOPERIDOL 5MG/ML VIAL (J1630 PER 1) IM PRN (02:15)
[2020-07-08] MEDS: PIPERACILLIN/TAZOBACTAM SOD 3.375 GM in D5W MINI-BAG PLUS 50 ML IV SCH ×4 (02:50→19:56)
[2020-07-08 06:00] VITALS: BP 166/83
[2020-07-08] MEDS: ENOXAPARIN 40MG/0.4ML SYRINGE (J1650 PER 10MG) SC SCH (08:56)
[2020-07-08] MEDS: TAMSULOSIN 0.4 MG CAP PO SCH (08:56)
[2020-07-08] MEDS: DUTASTERIDE 0.5 MG CAP (AVODART) PO SCH (08:57)
[2020-07-08] MEDS: lisinopriL 10 MG TAB PO SCH (08:57)
[2020-07-08 22:00] VITALS: BP 148/78
[2020-07-09] MEDS: PIPERACILLIN/TAZOBACTAM SOD 3.375 GM in D5W MINI-BAG PLUS 50 ML IV SCH ×3 (02:30→13:25)
[2020-07-09 04:00] VITALS: BP 133/84
[2020-07-09 06:00] VITALS: BP 160/83
[2020-07-09 10:00] VITALS: BP 158/80
[2020-07-09] MEDS: ENOXAPARIN 40MG/0.4ML SYRINGE (J1650 PER 10MG) SC SCH (10:12)
[2020-07-09 10:22] VITALS: BP 162/84
[2020-07-09] MEDS: lisinopriL 10 MG TAB PO SCH (10:22)
[2020-07-09] MEDS: TAMSULOSIN 0.4 MG CAP PO SCH (10:23)
[2020-07-09] MEDS: DUTASTERIDE 0.5 MG CAP (AVODART) PO SCH (10:23)
[2020-07-09] MEDS ORDERED: FLUBLOK(EGG FREE)(QUAD)INFLUENZA VACC 0.5ML SYRINGE 18YRS & OLDER IM ONE (15:00)
[2020-07-09] MEDS ORDERED: PREVNAR 13 VACCINE SYRINGE IM ONE (15:00)
--- NOTE | 2020-07-10 08:27 | IPN ---
DATE: 07/05/2020 HISTORY: Patient was admitted last evening with evidence for acute cholecystitis secondary to cholelithiasis. He had marked tenderness in the upper abdomen. Today, the patient is complaining of severe fairly diffuse abdominal pain. Examination reveals exquisite tenderness particularly in the mid and upper abdomen. Vital signs show that the patient has been afebrile. His pulse has been in the 80s up to the low 100s. His blood pressure is acceptable. Intake and output shows that yesterday he had 1,000 recorded in with only 100 urine output. PHYSICAL EXAMINATION: Shows that he is lying quietly on the bed. He is alert and responsive. He is markedly tender. His abdomen is quiet and somewhat distended. LABORATORY STUDIES: White count 14,000, which is up from 10,000 yesterday afternoon. Hemoglobin 14 with hematocrit 42 and platelet count 126,000. His differential count shows 88% neutrophils. Chemistries show normal electrolytes with BUN 17, creatinine 1.2 and glucose 138. Total bilirubin up to 1.5. IMPRESSION: The patient has even more marked tenderness, which is more diffuse today. His total bilirubin is slightly elevated and his white count is higher than yesterday. PLAN: Patient is scheduled for a laparoscopic cholecystectomy for today for presumed acute cholecystitis, now possibly gangrenous cholecystitis. SHAWNEE
--- NOTE | 2020-07-10 08:29 | IPN ---
DATE: 07/06/2020 HISTORY: Patient is now postop day #1 from a laparoscopic cholecystectomy. He was found to have a thickened and somewhat inflamed appearing gallbladder, but there was a distinct perforation through the mid-body about 3-4 mm in diameter with diffuse bilious peritonitis. Surgery was uncomplicated. Vital Signs: Patient has remained afebrile since surgery. His pulse is in the 50s to 70s generally. His blood pressure is normal, though it has been slightly elevated at times. Intake and output shows that yesterday he had 2,900 in with 500 recorded out. PHYSICAL EXAMINATION: The patient is clearly much more comfortable today. He is alert and mostly oriented, although he is still vague about time in particular. Heart exam shows a regular rhythm. His lungs show good bilateral breath sounds. Abdomen remains somewhat distended. He does have some bowel sounds, though they still seem somewhat hypoactive. His dressings are clean and dry. LABORATORY STUDIES: White count down to 12.6, hemoglobin 13, hematocrit 40, platelet count 123,000. Differential count shows 87% neutrophils and 7% lymphocytes. Chemistry profile showed normal electrolytes, BUN, creatinine and glucose of 141. Total bilirubin down to 1.2. IMPRESSION: Patient is doing much better following cholecystectomy for his perforated acute cholecystitis. PLAN: Patient will be continued on Zosyn for now. He will be allowed to take some clear liquids as tolerated, though he may have an ileus that will preclude this for some time. We will continue his I.V. fluids for now until he is drinking well. We will request a physical therapy evaluation. He is encouraged to be up out of bed. We will recheck his labs in the morning. SHAWNEE
--- NOTE | 2020-07-10 08:35 | IPN ---
DATE: 07/07/2020 HISTORY: The patient is now postop day #2 from a robotic assisted laparoscopic cholecystectomy for acute cholecystitis with perforation and diffuse peritonitis with bile. He has done fairly well over the past 24 hours. He denies any nausea or vomiting. He has been tolerating clear liquids well. Vital signs show that he has been afebrile since surgery. His pulse is in the 60s to low 80s. His blood pressure is generally good. Intake and output show that he has had 900 recorded in 956 mL recorded out. PHYSICAL EXAMINATION: GENERAL APPEARANCE: The patient is alert but not entirely oriented. He is appropriately responsive but has trouble recalling details including his wifes phone number. HEART: Regular rhythm. LUNGS: Clear. ABDOMEN: His incisions appear to be healing well. He has active bowel sounds. The abdomen is soft, though he has some mild expected tenderness. LABORATORY STUDIES: His white count is 8 with a hemoglobin of 12, hematocrit 37 and a platelet count of 117,000. His differential count shows 74% neutrophils and 19% lymphocytes. Chemistry profile shows normal electrolytes, BUN, creatinine and glucose with the exception of a chloride of 109. His liver function tests are normal. IMPRESSION: The patient is doing well postop day #2 from his cholecystectomy. He has tolerated clear liquids well. PLAN: The patient will be advanced to a consistent carbohydrate diet. He will be allowed to shower ad rex with assistance. Physical therapy was consulted yesterday for evaluation and treatment. I will continue his IV antibiotics until he is ready for discharge, and this may well depend on his physical therapy results. SHAWNEE
--- NOTE | 2020-07-10 08:37 | IPN ---
DATE: 07/08/2020 HISTORY: The patient is now postop day #3 from his robotic assisted laparoscopic cholecystectomy for acute cholecystitis with perforation and diffuse bilious peritonitis. He has been doing fairly well. He was given a small dose of Haldol by my covering partner early this morning as he was getting a little rambunctious. He has been showing signs of more disorientation, particularly at night. He does have some mild baseline dementia that has been acknowledged. This morning he seems alert and cooperative. He remains somewhat vague. Vital signs show that he has been afebrile over the past 24 hours. His pulse is in the 60s to 80s and his blood pressure has been good. Intake and output show that yesterday he received 900 in with almost 1,000 out. He did have a bowel movement recorded this morning. PHYSICAL EXAMINATION: GENERAL APPEARANCE: The patient is alert and appears comfortable. HEART: Exam is unremarkable. LUNGS: Exam is unremarkable. ABDOMEN: The abdomen remains a little protuberant or just obese. His incisions all appear to be healing well. He has active bowel sounds. LABORATORY STUDIES: There are no new laboratory findings. His pathology report is now available and reveals acute cholecystitis with cholelithiasis. IMPRESSION: The patient continues to do well. Physical Therapy found him to be somewhat unstable still and felt that he required additional rehab in-house. He has tolerated his diet well. PLAN: The patient will continue with inpatient rehabilitation. He may well be ready to go home in the next 1-2 days. I will continue his antibiotics IV for now. SHAWNEE
--- NOTE | 2020-07-11 09:11 | ECGEPIP ---
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
--- NOTE | 2020-07-25 10:58 | RO ---
DATE OF OPERATION: 07/05/2020 PREOPERATIVE DIAGNOSIS: Cholelithiasis with acute cholecystitis. POSTOPERATIVE DIAGNOSIS: Cholelithiasis with acute cholecystitis with perforation of the gallbladder and diffuse bile peritonitis. PROCEDURE PERFORMED: Robotic-assisted laparoscopic cholecystectomy with irrigation of peritonitis. SURGEON: Fito Fischer MD ANESTHESIA: General. INDICATIONS FOR THE PROCEDURE: The patient is a 75-year-old man who presented to the emergency department with two day history of milder lower abdominal pain which had become much more severe on the day of presentation and become more localized in right upper quadrant. Imaging showed thickening of the gallbladder with presence of a large gallstone or stones. He was diagnosed with acute cholecystitis. His pain has become even more severe and more diffuse and he is now for laparoscopic cholecystectomy. OPERATIVE PROCEDURE: The patient was brought to the operating room and placed on the table in supine position. He was placed under general endotracheal anesthesia. The patients abdomen was prepped and draped in sterile fashion. 0.25% Marcaine was infiltrated at each of the trocar sites in turn. A short transverse left upper quadrant skin incision was made and the Veress needle was inserted. After positive hanging drop test the abdomen was inflated with CO2 gas. An 8 mm robotic port was placed over a 5 mm scope and advanced through the abdominal wall without difficulty. Initial examination showed some bilious fluid above the liver with some exudate noted around the area of the gallbladder. The fundus of the gallbladder appeared somewhat reddened but not certainly gangrenous. A second 8 mm port was placed just above the umbilicus and two additional ports were placed in the medial and lateral aspects of the right lower quadrant. The patient cart of the da Priscilla Xi system was brought into position and the endoscope arm was docked to the endoscope port. Targeting took place in the right upper quadrant and the additional arms were then docked. Initially a cauterizing scissor was placed in the left upper quadrant with fenestrated bipolar and grasping retractor in right lower quadrant. I then moved to the control console to proceed with the operation. Further inspection showed that there was bilious fluid largely throughout the abdomen. As graspers were used to depress the transverse colon and hepatic flexure a definite perforation was identified in the inferior or free surface of the midbody of the gallbladder. This was about 3 mm in diameter and there was bile pouring out into the abdomen. Several minutes were taken with suction data warehouse manager to remove a large amount of bilious fluid from the right upper quadrant. There was a large amount of exudate on the undersurface of the diaphragm above the right lobe of the liver and this was also debrided as thoroughly as possible. I then turned my attention back to the gallbladder to come back to do further irrigation later. The gallbladder was grasped and elevated. Dissection was begun near the gallbladder neck. A Hook cautery was inserted for this portion of the procedure. The peritoneum was opened overlying the neck of the gallbladder. With careful dissection the cystic duct was identified and this was then doubly clipped with hemoclips and divided. With further dissection the cholecystic artery was identified and this was also doubly clipped with hemoclips and divided. The gallbladder was then dissected free from the gallbladder bed using the cauterizing scissors. The gallbladder was not further perforated in the course of dissection and this was then placed in an Endopouch. The right upper quadrant was then thoroughly irrigated and the exudate was removed from the diaphragm as thoroughly as possible. I then turned my attention to the left upper quadrant as there was also bilious fluid pooled around the spleen high in the left upper quadrant. This area was also thoroughly irrigated. The fluid was removed as thoroughly as possible. The patient was then placed into fairly steep reverse Trendelenburg position with additional irrigation taking place. The fluid was allowed to drain toward the pelvis. The upper quadrants were cleared of fluid as thoroughly as possible and there was only a very light tinge to the fluid at this point. The robot was then undocked and the trocars were left in place but the hand instruments were used. The patient was gradually returned to a flat position and suction data warehouse manager was used to clear any remaining fluid from the right and left lower quadrants and the pelvis. Once the abdomen had been cleared of any bile as thoroughly as possible, the specimen pouch was grasped through the supraumbilical site. The abdomen was deflated and the trocars were all removed. It was necessary to extend the fascial incision slightly to remove the gallbladder through the supraumbilical site. This was sent for permanent pathology. The fascia was closed with interrupted simple sutures of 2-0 Vicryl. The skin incisions were all closed with buried 4-0 Vicryl and Steri-Strips. The patient tolerated the procedure well without apparent complication. He was awakened in the operating room, extubated and moved to the recovery room in stable condition. [place]
== END 2020-07-09 15:30 | disposition home health service (06) | DRG 417 ==
LOC: M ED 13:47 → M ED INP 19:40 → M MSPAV 21:19
PROVIDERS: ADMIT Surgery; ATTEND Surgery
PROC: 0FT44ZZ Resection of Gallbladder, Percutaneous Endoscopic Approach (ICD-10-PCS; principal; 2020-07-05 13:00)
DX: K80.00 Calculus of gallbladder with acute cholecystitis without obstruction (principal); K65.9 Peritonitis, unspecified; Z88.2 Allergy status to sulfonamides; Z79.899 Other long term (current) drug therapy; I10 Essential (primary) hypertension; E78.5 Hyperlipidemia, unspecified; N40.0 Benign prostatic hyperplasia without lower urinary tract symptoms

== ENCOUNTER → 2020-11-11 | Outpatient (REF) | payer MEDICARE, MEDICAID ==
[~2020-11-11] MED LIST changes: +ATOR40TA75 PO
== END ==
LOC: M SFHCPLAZ 15:13
DX: E11.9 Type 2 diabetes mellitus without complications (principal)

== ENCOUNTER → 2020-11-12 | Outpatient (CLI) | payer MEDICARE, MEDICAID ==
[2020-11-12 14:03] LABS: HEMOGLOBIN A1c 5.5 %
[2020-11-12 14:11] LABS: ALBUMIN 3.7 GM/DL (3.2-5.2); ALT/SGPT 25 U/L (12-78); BILIRUBIN,TOTAL 0.6 MG/DL (0.2-1.0); BLOOD UREA NITROGEN 14 MG/DL (7-18); CALCIUM LEVEL 9.1 MG/DL (8.8-10.2); CARBON DIOXIDE LEVEL 29 MEQ/L (21-32); CHLORIDE LEVEL 108 MEQ/L (98-107); CHOLESTEROL LEVEL 124 MG/DL (<200); CHOLESTEROL RISK RATIO 2.384 (<5); CREATININE FOR GFR 0.97 MG/DL (0.70-1.30); GLOMERULAR FILTRATION RATE > 60.0 (>42); GLUCOSE, FASTING 84 MG/DL (70-100); HDL CHOLESTEROL 52 MG/DL (>40); LDL CHOLESTEROL 49 MG/DL (<100); NON-HDL-C 72 MG/DL; SODIUM LEVEL 142 MEQ/L (136-145); TOTAL PROTEIN 6.8 GM/DL (6.4-8.2); TRIGLYCERIDES LEVEL 115 MG/DL (<150)
== END ==
LOC: M LAB 13:01
PROVIDERS: ATTEND Hospitalist
DX: E11.9 Type 2 diabetes mellitus without complications (principal)

== ENCOUNTER → 2021-07-05 | Outpatient (CLI) | payer OTHER, MEDICAID ==
[~2021-07-05] MED LIST changes: +HYDR-3490 PO; -HYDR25TAB PO; +LISI10TA22 PO; -LISI10TA4 PO; +OMEP40CA4 PO; -OMEP40CA97 PO
[2021-07-05 15:57] LABS: BLOOD UREA NITROGEN 16 MG/DL (7-18); CALCIUM LEVEL 9.5 MG/DL (8.8-10.2); CARBON DIOXIDE LEVEL 32 MEQ/L (21-32); CHLORIDE LEVEL 105 MEQ/L (98-107); CHOLESTEROL LEVEL 131 MG/DL (<200); CHOLESTEROL RISK RATIO 3.046 (<5); GLOMERULAR FILTRATION RATE > 60.0 (>42); GLUCOSE, FASTING 107 MG/DL (70-100); HDL CHOLESTEROL 43 MG/DL (>40); LDL CHOLESTEROL 42 MG/DL (<100); NON-HDL-C 88 MG/DL; POTASSIUM SERUM 4.8 MEQ/L (3.5-5.1); SODIUM LEVEL 140 MEQ/L (136-145); TRIGLYCERIDES LEVEL 231 MG/DL (<150)
== END ==
LOC: M PLALAB 12:26
PROVIDERS: ATTEND Student in an Organized Health Care Education/Training Program
DX: E78.5 Hyperlipidemia, unspecified (principal); E11.9 Type 2 diabetes mellitus without complications
CPT/HCPCS: 36415; 80048; 80061; 83036; G0463

== ENCOUNTER → 2021-07-05 | Outpatient (REF) | payer OTHER, MEDICAID | LOC: M SFHCPLAZ 11:43 | PROVIDERS: ATTEND Family Medicine | DX: Z53.20 Procedure and treatment not carried out because of patient's decision for unspecified reasons (principal) ==

== ENCOUNTER 2021-10-29 12:17 | Emergency (ER) | payer OTHER, MEDICAID ==
[~2021-10-29] VITALS: Ht 175.3 cm; Wt 77.3 kg
[2021-10-29] MEDS ORDERED: BOOSTRIX/ADACEL VACCINE (DIPHTH/PERTUSS/ACELL/TETANUS) 0.5ML SYR IM ONE (12:45)
--- NOTE | 2021-10-29 12:54 | REP ---
INDICATION: trauma COMPARISON: 06/05/2015 TECHNIQUE: Axial noncontrast images from the skull base to the thoracic inlet with coronal reformations. This CT examination was performed using the following dose reduction techniques: Automated exposure control, adjustment of mA and/or kv according to the patient's size, and use of iterative reconstruction technique. FINDINGS: Atrophy with periventricular leukomalacia and microvascular ischemic changes are appreciated. The ventricles and sulci are symmetric. Allen-white differentiation is maintained. There is no evidence for acute intracranial hemorrhage, mass/mass effect, pathology or infarction. No extra-axial fluid collection. Calvarium is intact. Paranasal sinuses and mastoid air cells are clear. IMPRESSION: Atrophy and microvascular ischemic changes. No acute intracranial hemorrhage, infarction, or mass/mass effect. <Electronically signed by Pastor Harper > 10/29/21 [id number]
[2021-10-29] MEDS ORDERED: LIDOCAINE 2% W/EPINEPHRINE 20ML VIAL **PRES FREE INJ ONE (13:00)
[2021-10-29 13:30] VITALS: BP 163/81
== END 2021-10-29 13:55 | disposition home or self-care (01) ==
LOC: M ED 12:17
DX: S01.81XA Laceration without foreign body of other part of head, initial encounter (principal); W22.8XXA Striking against or struck by other objects, initial encounter; Y92.009 Unspecified place in unspecified non-institutional (private) residence as the place of occurrence of the external cause; Y93.9 Activity, unspecified; Y99.9 Unspecified external cause status; E11.9 Type 2 diabetes mellitus without complications; I10 Essential (primary) hypertension; E78.5 Hyperlipidemia, unspecified; Z87.891 Personal history of nicotine dependence; Z88.8 Allergy status to other drugs, medicaments and biological substances; Z79.899 Other long term (current) drug therapy

== ENCOUNTER 2021-10-30 09:04 | Emergency (ER) | payer OTHER, MEDICAID ==
[2021-10-30 09:29] VITALS: BP 146/78
== END 2021-10-30 10:47 | disposition home or self-care (01) ==
LOC: M ED 09:04 → EDBD 09:04 → M ED 10:47
DX: S01.112D Laceration without foreign body of left eyelid and periocular area, subsequent encounter (principal); Y92.9 Unspecified place or not applicable; Y93.9 Activity, unspecified; Y99.9 Unspecified external cause status; R22.0 Localized swelling, mass and lump, head; Z88.2 Allergy status to sulfonamides

== ENCOUNTER → 2021-12-19 | Outpatient (CLI) | payer OTHER, MEDICAID ==
[~2021-12-19] MED LIST changes: +BACIOIN5 OP; +CEPH500C PO
[2021-12-19 15:33] LABS: BASO # 0.1 10^3/uL (0.0-0.2); BASO % 0.9 % (0.0-1.0); EOS # 0.2 10^3/uL (0.0-0.5); EOS % 3.3 % (0.0-3.0); HEMATOCRIT 44.2 % (42.0-52.0); HEMOGLOBIN 14.4 g/dl (13.5-17.5); LYMPH # 1.9 10^3/uL (1.5-5.0); LYMPH % 33.2 % (24.0-44.0); MEAN CORPUSCULAR HEMOGLOBIN 29.4 pg (27.0-33.0); MEAN CORPUSCULAR HGB CONC 32.6 g/dl (32.0-36.5); MEAN CORPUSCULAR VOLUME 90.2 fl (80.0-96.0); MONO # 0.4 10^3/uL (0.0-0.8); MONO % 7.3 % (2.0-8.0); NEUTROPHILS # 3.2 10^3/uL (1.5-8.5); NEUTROPHILS % 55.1 % (36.0-66.0); PLATELET COUNT, AUTOMATED 141 10^3/uL (150-450); WHITE BLOOD COUNT 5.7 10^3/uL (4.0-10.0)
[2021-12-19 15:57] LABS: HEMOGLOBIN A1c 6.1 %
== END ==
LOC: M PLALAB 13:58
PROVIDERS: ATTEND Student in an Organized Health Care Education/Training Program
DX: E78.2 Mixed hyperlipidemia (principal); I10 Essential (primary) hypertension; Z79.899 Other long term (current) drug therapy

== ENCOUNTER → 2021-12-19 | Outpatient (REF) | payer OTHER, MEDICAID ==
[~2021-12-19] MED LIST changes: -BACIOIN5 OP; -CEPH500C PO
== END ==
LOC: M SFHCPLAZ 13:41
PROVIDERS: ATTEND Family Medicine
DX: E78.2 Mixed hyperlipidemia (principal); I10 Essential (primary) hypertension

== ENCOUNTER 2022-01-03 08:38 | Emergency (ER) | payer OTHER, MEDICAID ==
[2022-01-03] MEDS ORDERED: LIDOCAINE 2% MDV 20ML VIAL SC ONE (08:50)
[2022-01-03] MEDS ORDERED: NEOSPORIN OINT 0.9 GM PKT TOP ONE (09:10)
[2022-01-03] MEDS ORDERED: BACIOIN5 OP (09:43)
[2022-01-03] MEDS ORDERED: CEPH500C PO (09:43)
[2022-01-03 10:00] VITALS: BP 168/97
== END 2022-01-03 10:17 | disposition home or self-care (01) ==
LOC: M ED 08:38 → EDBD 08:38 → M ED 10:17
DX: S01.81XA Laceration without foreign body of other part of head, initial encounter (principal); W22.8XXA Striking against or struck by other objects, initial encounter; Y92.018 Other place in single-family (private) house as the place of occurrence of the external cause; I10 Essential (primary) hypertension; E11.9 Type 2 diabetes mellitus without complications; E78.9 Disorder of lipoprotein metabolism, unspecified; Z79.899 Other long term (current) drug therapy; Z79.84 Long term (current) use of oral hypoglycemic drugs; Z88.8 Allergy status to other drugs, medicaments and biological substances

== ENCOUNTER 2023-02-14 17:18 | Emergency (ER) | payer MEDICAID, MEDICARE, OTHER ==
[~2023-02-14] VITALS: Ht 177.8 cm; Wt 89.3 kg
[~2023-02-14 17:18] MED LIST changes: +BACIOIN5 OP; +CEPH500C PO
[2023-02-14] MEDS ORDERED: ONDANSETRON 4MG 2ML VIAL IV ONE (17:50)
[2023-02-14] MEDS ORDERED: MORPHINE 2 MG/ML 1ML VIAL IV PRN (17:50)
[2023-02-14] MEDS ORDERED: ISOVUE-370 76% 100ML VIAL As Ordered ONE (18:07)
[2023-02-14 18:08] LABS: BASO % 0.4 % (0.0-1.0); EOS # 0.2 10^3/uL (0.0-0.5); EOS % 2.5 % (0.0-3.0); HEMATOCRIT 42.6 % (42.0-52.0); HEMOGLOBIN 13.9 g/dl (13.5-17.5); LYMPH # 1.8 10^3/uL (1.5-5.0); LYMPH % 22.9 % (24.0-44.0); MEAN CORPUSCULAR HEMOGLOBIN 29.4 pg (27.0-33.0); MEAN CORPUSCULAR HGB CONC 32.6 g/dl (32.0-36.5); MEAN CORPUSCULAR VOLUME 90.1 fl (80.0-96.0); MONO # 0.6 10^3/uL (0.0-0.8); MONO % 7.8 % (2.0-8.0); NEUTROPHILS # 5.1 10^3/uL (1.5-8.5); NEUTROPHILS % 66.1 % (36.0-66.0); PLATELET COUNT, AUTOMATED 142 10^3/uL (150-450); RED BLOOD COUNT 4.73 10^6/uL (4.30-6.10); WHITE BLOOD COUNT 7.7 10^3/uL (4.0-10.0)
[2023-02-14 18:23] LABS: INR 0.98; PROTHROMBIN TIME 13.2 SECONDS (12.5-14.5)
[2023-02-14 18:24] LABS: PARTIAL THROMBOPLASTIN TIME 30.9 SECONDS (24.8-34.2)
[2023-02-14 18:32] LABS: CK-MB VALUE MASS 8.8 NG/ML (<3.6)
[2023-02-14 18:34] LABS: LIPASE 33 U/L (12-53)
[2023-02-14 18:36] LABS: ALBUMIN 3.5 G/DL (3.2-5.2); ALKALINE PHOSPHATASE 65 U/L (46-116); ALT/SGPT 37 U/L (7.0-40); AST/SGOT 41 U/L (<34); BILIRUBIN,DIRECT 0.2 MG/DL (<0.4); BILIRUBIN,TOTAL 0.5 MG/DL (0.3-1.2); BLOOD UREA NITROGEN 15 MG/DL (9-23); CALCIUM LEVEL 8.8 MG/DL (8.3-10.6); CARBON DIOXIDE LEVEL 28 MMOL/L (20-31); CHLORIDE LEVEL 107 MMOL/L (98-107); CPK CREATINE PHOSPHOKINASE 737 U/L (46-171); CREATININE FOR GFR 0.96 MG/DL (0.70-1.30); GLOMERULAR FILTRATION RATE > 60.0 (>42); GLUCOSE, FASTING 101 MG/DL (74-106); MB/CK RELATIVE INDEX 1.19 (< OR =4); SODIUM LEVEL 143 MMOL/L (136-145); TOTAL PROTEIN 6.1 G/DL (5.7-8.2)
[2023-02-14 18:43] LABS: RSV AMPLIFICATION NEGATIVE (NEGATIVE)
[2023-02-14] MEDS ORDERED: KETOROLAC 30 MG/ML 1ML VIAL IV ONE (19:10)
[2023-02-14 20:13] LABS: MB/CK RELATIVE INDEX 0.95 (< OR =4)
[2023-02-14 21:02] VITALS: BP 138/78
== END 2023-02-14 21:03 | disposition home or self-care (01) ==
LOC: EDBD 17:18 → M ED 17:18
DX: M79.10 Myalgia, unspecified site (principal); I10 Essential (primary) hypertension; E78.5 Hyperlipidemia, unspecified; R73.01 Impaired fasting glucose; Z87.891 Personal history of nicotine dependence; Z79.84 Long term (current) use of oral hypoglycemic drugs; Z79.899 Other long term (current) drug therapy; Z88.8 Allergy status to other drugs, medicaments and biological substances
CPT/HCPCS: 71045; 71275; 73502; 74177; 80047; 80048; 80076; 82550; 82553; 83605; 83690; 84484; 85025; 85610; 85730; 87040; 87631; 93005; 93041; 96374; 96375; 99285; J1885; J2405; Q9967